=== PATIENT | female | born 1985 | race Caucasian/White ===

== ENCOUNTER 2023-03-16 11:35 | Emergency (ER) | payer OTHER ==
[2023-03-16] MEDS ORDERED: Cyclobenzaprine 10 MG TAB ONE (12:24)
[2023-03-16] MEDS ORDERED: Ketorolac Tromethamine 30 MG/ML VIAL IM SCH (13:00)
[2023-03-16] MEDS ORDERED: Lidocaine 4% Patch TD SCH (13:30)
== END 2023-03-16 14:56 | disposition home or self-care (01) ==
LOC: CSHERS 11:35
DX: S39.012A Strain of muscle, fascia and tendon of lower back, initial encounter (principal); X58.XXXA Exposure to other specified factors, initial encounter; Y99.0 Civilian activity done for income or pay
CPT/HCPCS: 96372; 99283; J1885

== ENCOUNTER 2024-02-27 09:11 | Outpatient (CLI) | payer BC | END 2024-02-27 09:12 | disposition home or self-care (01) | LOC: CSHULT 09:11 | PROVIDERS: ATTEND Physician Assistant | DX: R74.8 Abnormal levels of other serum enzymes (principal) | CPT/HCPCS: 76705 ==